=== PATIENT | female | born 1990 | race Caucasian/White ===

== ENCOUNTER 2016-04-11 10:06 | Emergency (ER) | payer OTHER ==
[~2016-04-11] VITALS: Ht 170.2 cm; Wt 113.4 kg
[2016-04-11 10:14] VITALS: BP 150/96
--- NOTE | 2016-04-11 10:25 | NUR ---
Patient being evaluated by DR. VILLARREAL at bedside.
[2016-04-11] MEDS ORDERED: ACETAMINOPHEN EXTRA STRENGTH 500 MG TAB PO ONE (10:30)
--- NOTE | 2016-04-11 10:30 | NUR ---
25/F HERE FOR C/O INTERMITTENT NOSEBLEEDS OVER THE PAST 24 HOURS AND HEADACHE AND BP 150/96. HX OF GESTATIONAL HTN. STATES LAST NOSEBLEED THIS AM LASTING APPROXIMATELY 5 MIN. DENIES N/V/D; SKIN IS PINK/WARM/DRY; AAOX4 WITH EVEN AND STEADY GAIT; LUNGS CLEAR BL; HR EVEN AND REGULAR; PT DENIES ANY FEVER, CP, SOB, OR COUGH AT THIS TIME; PATIENT STATES PAIN OF 9/10 AT THIS TIME; PATIENT POSITIONED FOR COMFORT; HOB ELEVATED; BEDRAILS UP X2; BED DOWN. ER MD MADE AWARE OF PT STATUS.
[2016-04-11] MEDS ORDERED: SILVER NITRATE APPLICATOR 1 EA SWAB TP ONE (10:35)
--- NOTE | 2016-04-11 10:45 | NUR ---
PHONED PHARMACY FOR SILVER NITRATE PER ORDER
--- NOTE | 2016-04-11 11:09 | NUR ---
DR VILLARREAL AT BEDSIDE. MED GIVEN. WILL F/U IN 10MIN.
--- NOTE | 2016-04-11 12:10 | NUR ---
Patient discharged with v/s stable. Written and verbal after care instructions given and explained. Patient alert, oriented and verbalized understanding of instructions. Ambulatory with steady gait. All questions addressed prior to discharge. ID band removed. Patient advised to follow up with PMD. Opportunity to ask questions provided and answered.
[2016-04-11 12:14] VITALS: BP 115/81
== END 2016-04-11 12:14 | disposition home or self-care (01) ==
LOC: MED 10:06
DX: R04.0 Epistaxis (principal); R03.0 Elevated blood-pressure reading, without diagnosis of hypertension; R51 Headache

== ENCOUNTER 2016-09-06 07:31 | Emergency (ER) | payer OTHER ==
[~2016-09-06] VITALS: Ht 172.7 cm; Wt 130.6 kg
[2016-09-06 07:38] VITALS: BP 121/77
--- NOTE | 2016-09-06 07:50 | NUR ---
PT AMB TO BED 6
--- NOTE | 2016-09-06 07:51 | NUR ---
25/F BIB SELF c/o LUQ ABDOMEN sharp pain radiating TO ALL ABDOMEN with nausea x yesterday morning, watery stools x 5 episodes yesterday. DENIES V/D NOTED TODAY; SKIN IS PINK/WARM/DRY; AAOX4 WITH EVEN AND STEADY GAIT; LUNGS CLEAR BL; HR EVEN AND REGULAR; PT DENIES ANY FEVER, CP, SOB, OR COUGH AT THIS TIME; PATIENT STATES PAIN OF 5/10 AT THIS TIME; VSS; PATIENT POSITIONED FOR COMFORT; HOB ELEVATED; BEDRAILS UP X2; BED DOWN. ER MD MADE AWARE OF PT STATUS.
[2016-09-06] MEDS ORDERED: NACL 0.9% 1,000 ML IV SCH (07:58)
[2016-09-06] MEDS ORDERED: ONDANSETRON 4 MG/2 ML VIAL IVP ONE (08:00)
[2016-09-06] MEDS ORDERED: ALUMINUM HYD/MAG/SIMETHICONE 30 ML, DICYCLOMINE HCL LIQUID 20 MG, LIDOCAINE VISCOUS 2% ... PO ONE ×3 (08:00)
[2016-09-06] MEDS ORDERED: KETOROLAC 30 MG/ML VIAL IVP ONE (08:00)
--- NOTE | 2016-09-06 08:15 | NUR ---
ER MD DR CHAVEZ EVALUATING PT AT BEDSIDE.
--- NOTE | 2016-09-06 08:25 | NUR ---
INSERTED IV CATH NO 20 G ;R HAND. PT TOLERATED PROCEDURE WELL. IV PATENT/INTACT. GAVE IV FLUID& MEDS PER ORDERED. ABDOMINAL PAIN 07/24. WILL CONTINUE TO MONITOR.
--- NOTE | 2016-09-06 08:26 | NUR ---
LAB AT BEDSIDE.
[2016-09-06 08:43] LABS: BASOPHILS # (AUTO) 0.2 K/uL (0.00-0.22); BASOPHILS % (AUTO) 3.1 % (0.0-2.0); EOSINOPHILS # (AUTO) 0.1 K/uL (0-0.4); EOSINOPHILS % (AUTO) 1.4 % (0.0-4.0); HEMATOCRIT 34.1 % (36-48); HEMOGLOBIN 10.8 g/dL (12.0-16.0); LYMPHOCYTES # (AUTO) 1.6 K/uL (2.5-16.5); LYMPHOCYTES % (AUTO) 25.9 % (20.5-51.1); MEAN CORPUSCULAR HEMOGLOBIN 25 pg (27-31); MEAN CORPUSCULAR HGB CONC 32 g/dL (33-37); MEAN CORPUSCULAR VOLUME 78 fL (80-94); MONOCYTES # (AUTO) 0.7 K/uL (0.8-1.0); NEUTROPHILS # (AUTO) 3.5 K/uL (1.8-7.7); NEUTROPHILS % (AUTO) 57.6 % (42.2-75.2); PLATELET COUNT (AUTO) 207 K/uL (140-450); RED BLOOD CELL COUNT(AUTO) 4.36 MIL/uL (4.20-5.40); RED CELL DISTRIBUTION WIDTH 14.6 % (11.6-13.7); WHITE BLOOD COUNT (AUTO) 6.1 K/uL (4.8-10.8)
[2016-09-06 08:57] LABS: ANION GAP 11.5 (8-16); CALCIUM 7.7 mg/dL (8.5-10.1); CARBON DIOXIDE 26.2 mmol/L (21-32); CREATININE 0.7 mg/dL (0.6-1.3); POTASSIUM 3.7 mmol/L (3.5-5.1)
--- NOTE | 2016-09-06 09:00 | NUR ---
PT TAKEN TO CT VIA W/C ACCOMPANIED BY CLEAN ROOM TECHNICIAN.
[2016-09-06 09:03] LABS: ALBUMIN 2.7 g/dL (3.4-5.0); TOTAL BILIRUBIN 0.3 mg/dL (0.0-1.0)
--- NOTE | 2016-09-06 09:45 | NUR ---
PT BACK FROM CT
--- NOTE | 2016-09-06 10:46 | NUR ---
ER MD DR CHAVEZ REEVALUATING PT AT BEDSIDE.
[2016-09-06 11:03] VITALS: BP 123/72
[2016-09-06 11:04] LABS: APPEARANCE,URINE HAZY (CLEAR); BILIRUBIN,URINE NEGATIVE (NEGATIVE); BLOOD, URINE 3+ (NEGATIVE); COLOR,URINE YELLOW (YELLOW); LEUKOCYTE ESTERASE ,URINE NEGATIVE (NEGATIVE); NITRITE, URINE NEGATIVE (NEGATIVE); PROTEIN,URINE NEGATIVE (NEGATIVE); UGLUCOSE NEGATIVE (NEGATIVE); UROBILINOGEN,URINE 0.2 EU/dL (0.2 - 1)
[2016-09-06 11:26] LABS: BACTERIA,URINE OCCASSIONAL /HPF (None Seen); MUCUS,URINE 2+ /LPF (None Seen); RBC,URINE 20-50 /HPF (0-5); WBC,URINE 0-4 /HPF (0-5)
== END 2016-09-06 11:03 | disposition home or self-care (01) ==
LOC: MED 07:31
DX: A08.4 Viral intestinal infection, unspecified (principal); I10 Essential (primary) hypertension; E66.01 Morbid (severe) obesity due to excess calories; Z68.41 Body mass index [BMI] 40.0-44.9, adult
CPT/HCPCS: 36415; 74177; 80053; 81001; 81025; 82150; 83690; 84703; 85025; 96361; 96374; 96375; 99285; J1885; J2405; J7030; Q9967; 81002

== ENCOUNTER 2017-07-16 12:06 | Emergency (ER) | payer OTHER ==
[~2017-07-16] VITALS: Ht 172.7 cm; Wt 142.9 kg
[2017-07-16 12:18] VITALS: BP 142/79
--- NOTE | 2017-07-16 12:21 | NUR ---
PT AMBULATED TO DULCE WITH STEADY GAIT
--- NOTE | 2017-07-16 12:30 | NUR ---
PT. CAME INTO ED W/ C/O COUGH THAT HAS BEEN GOING ON FOR 2 DAYS . PT. STATES " I HAVE BEEN HAVING A COUGH FOR TWO DAYS BUT THIS MONRING MY UPPER BACK HURTS WHEN I COUGH AND ALSO WHEN I BREATHE AND HAVE BEEN COUGHING UP YELLOW THICK PHLEGM. " PT. DENIES ANY FEVERS, PT. DENIES SOB, DENIES CHEST PAIN, LS: CLEAR, PT. AAOX4. 7/10 IN HER THROAT AND DESCRIBES IT BURNING AND ALSO 7/10 PAIN IN HER UPPER BACK THAT IS DESCRIBED SHARP AND NONE RADIATING. DENIES N/V/D. E.Juan Diego RANKIN NOTIFIED. WILL CONTINUE TO MONITOR. MOTHER AT BEDSIDE
[2017-07-16] MEDS ORDERED: ALBUTEROL SULFATE/IPRATROPIU 3 ML SOL IH ONE (13:45)
[2017-07-16] MEDS ORDERED: DEXAMETHASONE 10 MG/ML VIAL IM ONE (13:45)
[2017-07-16] MEDS ORDERED: cefTRIAXone 1,000 MG in LIDOCAINE 1% ***ER ONLY *** 2.1 ML IM ONE (13:45)
[2017-07-16] MEDS ORDERED: cefTRIAXone 1,000 MG VIAL ONE (13:56)
[2017-07-16] MEDS ORDERED: LIDOCAINE MPF 1% - **ER/OR** 5 ML ONE (14:00)
[2017-07-16 15:53] VITALS: BP 112/69
--- NOTE | 2017-07-16 15:54 | NUR ---
Patient discharged with v/s stable. Written and verbal after care instructions given and explained. Patient alert, oriented and verbalized understanding of instructions. Ambulatory with steady gait. All questions addressed prior to discharge. ID band removed. Patient advised to follow up with PMD. Rx of PREDNISONE,PROMETHAZINE,AZITHROMYCIN,ALBUTEROL given. Patient educated on indication of medication including possible reaction and side effects. Opportunity to ask questions provided and answered.
== END 2017-07-16 15:54 | disposition home or self-care (01) ==
LOC: MED 12:06
DX: J20.9 Acute bronchitis, unspecified (principal); M25.512 Pain in left shoulder
CPT/HCPCS: 71046; 94640; 96372; 99284; J0696; J1100; J2001; J7620

== ENCOUNTER 2017-11-05 13:33 | Emergency (ER) | payer OTHER ==
[~2017-11-05] VITALS: Ht 170.2 cm; Wt 140.6 kg
[2017-11-05 13:46] VITALS: BP 127/47
--- NOTE | 2017-11-05 13:57 | NUR ---
PT ROOMED IN ED BED 4 BY TEDDY PELAYO
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
--- NOTE | 2017-11-05 15:48 | NUR ---
Patient discharged with v/s stable. Written and verbal after care instructions given and explained. Patient alert, oriented and verbalized understanding of instructions. Ambulatory with steady gait. All questions addressed prior to discharge. ID band removed. Patient advised to follow up with PMD. Rx of PREDNISONE,HYDROCORTISONE AND BENADRYL given. Patient educated on indication of medication including possible reaction and side effects. Opportunity to ask questions provided and answered.
[2017-11-05 15:49] VITALS: BP 125/53
== END 2017-11-05 15:48 | disposition home or self-care (01) ==
LOC: MED 13:33
DX: S93.402A Sprain of unspecified ligament of left ankle, initial encounter (principal); I10 Essential (primary) hypertension; W57.XXXA Bitten or stung by nonvenomous insect and other nonvenomous arthropods, initial encounter; Y93.89 Activity, other specified; Y92.89 Other specified places as the place of occurrence of the external cause; Y99.8 Other external cause status
CPT/HCPCS: 73610; 99284; Q0092

== ENCOUNTER 2018-09-25 17:24 | Emergency (ER) | payer OTHER ==
[~2018-09-25] VITALS: Ht 172.7 cm; Wt 139.4 kg
[2018-09-25 17:50] VITALS: BP 135/78
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
--- NOTE | 2018-09-25 18:05 | NUR ---
Patient ambulated to bed 5 with family. RN evaluating patient at bedside.
--- NOTE | 2018-09-25 19:15 | NUR ---
Pt report given to GITA GUILLEN. Transfer of care at this time.
--- NOTE | 2018-09-25 19:16 | NUR ---
Lex bernard in [facility] - 09/25/18 at 1928 by TEETEE REPORT RECEIVED FROM GITA GUO. TRANSFER OF CARE AT THIS TIME.
--- NOTE | 2018-09-25 19:16 | NUR ---
REPORT RECEIVED FROM GITA GUO. TRANSFER OF CARE AT THIS TIME.
--- NOTE | 2018-09-25 19:26 | NUR ---
DR. PACHECO EVALUATING AT BEDSIDE.
[2018-09-25 19:39] LABS: APPEARANCE,URINE CLEAR (CLEAR); BILIRUBIN,URINE NEGATIVE (NEGATIVE); BLOOD, URINE TRACE-I (NEGATIVE); COLOR,URINE YELLOW (YELLOW); LEUKOCYTE ESTERASE ,URINE TRACE (NEGATIVE); NITRITE, URINE NEGATIVE (NEGATIVE); PH,URINE 8.5 (5.0-9.0); UGLUCOSE NEGATIVE (NEGATIVE)
[2018-09-25 19:59] LABS: RBC,URINE 0-5 /HPF (0-5)
--- NOTE | 2018-09-25 20:15 | NUR ---
LABS DRAWN BY RN AT BEDSIDE.
--- NOTE | 2018-09-25 20:27 | NUR ---
EMT PERFORMING EKG AT BEDSIDE.
[2018-09-25 20:44] LABS: BASOPHILS % (AUTO) 0.2 % (0.0-2.0); HEMATOCRIT 36.5 % (36-48); HEMOGLOBIN 11.3 g/dL (12.0-16.0); LYMPHOCYTES # (AUTO) 1.1 K/uL (2.5-16.5); LYMPHOCYTES % (AUTO) 8.3 % (20.5-51.1); MEAN CORPUSCULAR HEMOGLOBIN 24 pg (27-31); MEAN CORPUSCULAR HGB CONC 31 g/dL (33-37); MEAN CORPUSCULAR VOLUME 77.9 fL (80-94); MONOCYTES # (AUTO) 0.5 K/uL (0.8-1.0); MONOCYTES % (AUTO) 3.8 % (1.7-9.3); NEUTROPHILS # (AUTO) 11.4 K/uL (1.8-7.7); NEUTROPHILS % (AUTO) 87.7 % (42.2-75.2); PLATELET COUNT (AUTO) 231 K/uL (140-450); RED BLOOD CELL COUNT(AUTO) 4.68 MIL/uL (4.20-5.40); RED CELL DISTRIBUTION WIDTH 15.8 % (11.6-13.7)
--- NOTE | 2018-09-25 21:00 | NUR ---
CALLED CT TO CHECK ON STATUS. CT STATES THEY ARE AWAITING LAB RESULTS. WILL CONTINUE TO FOLLOW UP.
[2018-09-25 21:11] LABS: ALBUMIN 3.4 g/dL (3.4-5.0); ANION GAP 13.1 (8-16); CARBON DIOXIDE 26.4 mmol/L (21-32); CREATININE 0.9 mg/dL (0.6-1.3); POTASSIUM 3.5 mmol/L (3.5-5.1); TOTAL BILIRUBIN 0.4 mg/dL (0.0-1.0)
--- NOTE | 2018-09-25 21:50 | NUR ---
PT AWAKE, ALERT, CALM, COOPERATIVE SITTING AT BEDSIDE WAITING FOR CT WITH VSS. PT STATES PAIN IS MANAGABLE AT THIS TIME.
--- NOTE | 2018-09-25 22:03 | NUR ---
PT TAKEN TO CT VIA WC.
--- NOTE | 2018-09-25 22:19 | NUR ---
PATIENT RETURN FROM CT.
[2018-09-26 00:17] VITALS: BP 119/60
--- NOTE | 2018-09-26 00:17 | NUR ---
Patient discharged with v/s stable. Written and verbal after care instructions given and explained. Patient alert, oriented and verbalized understanding of instructions. Ambulatory with steady gait. All questions addressed prior to discharge. ID band removed. IV removed, catheter intact and site benign. Applied folded 4x4 gauze and tape to stop bleeding.Patient advised to follow up with PMD. Rx of Keflex 500mg given. Patient educated on indication of medication including possible reaction and side effects. Opportunity to ask questions provided and answered.
== END 2018-09-26 00:17 | disposition home or self-care (01) ==
LOC: MED 17:24
DX: S20.311A Abrasion of right front wall of thorax, initial encounter (principal); N39.0 Urinary tract infection, site not specified; M54.2 Cervicalgia; I10 Essential (primary) hypertension; V43.53XA Car driver injured in collision with pick-up truck in traffic accident, initial encounter; W22.10XA Striking against or struck by unspecified automobile airbag, initial encounter; Y93.89 Activity, other specified; Y92.488 Other paved roadways as the place of occurrence of the external cause; Y99.8 Other external cause status
CPT/HCPCS: 36415; 71045; 71275; 80053; 81001; 81025; 83690; 85025; 87086; 93005; 99284; Q0092; Q9967

== ENCOUNTER 2019-01-07 22:41 | Emergency (ER) | payer OTHER ==
[~2019-01-07] VITALS: Ht 170.2 cm; Wt 136.1 kg
[2019-01-07 22:55] VITALS: BP 135/87
--- NOTE | 2019-01-07 22:58 | NUR ---
TO LOBBY A/W BED AMBULATORY
--- NOTE | 2019-01-07 23:45 | NUR ---
28 Y/O F PRESENTS TO ER C/O VAGINAL BLEEDING SINCE TODAY. PER PT SHE IS 7 WEEKS . PT RECEIVING CARE. ON FRIDAY PT STATED SHE HAD BROWN DISCHARGE. DENIES DISCHARGE AT THIS TIME. PT HAS VAGINAL BLEEDING THAT STARTED TODAY, BLEEDING IS LIGHT. PT DENIES ANY PAIN. PAIN LEVEL 0/10. THIS IS PT SECOND . ALLERGIES: NKA. MED HX: NONE. SAFETY MEASURES IN PLACE. WAITING FOR ERMD TO EVALUATE PT.
[2019-01-08 00:28] LABS: BASOPHILS % (AUTO) 0.5 % (0.0-2.0); EOSINOPHILS % (AUTO) 0.4 % (0.0-4.0); HEMATOCRIT 34.6 % (36-48); HEMOGLOBIN 10.7 g/dL (12.0-16.0); LYMPHOCYTES # (AUTO) 1.8 K/uL (2.5-16.5); LYMPHOCYTES % (AUTO) 19.7 % (20.5-51.1); MEAN CORPUSCULAR HEMOGLOBIN 24 pg (27-31); MEAN CORPUSCULAR HGB CONC 31 g/dL (33-37); MEAN CORPUSCULAR VOLUME 77.3 fL (80-94); MONOCYTES # (AUTO) 0.6 K/uL (0.8-1.0); MONOCYTES % (AUTO) 6.6 % (1.7-9.3); NEUTROPHILS # (AUTO) 6.7 K/uL (1.8-7.7); NEUTROPHILS % (AUTO) 72.8 % (42.2-75.2); PLATELET COUNT (AUTO) 246 K/uL (140-450); RED BLOOD CELL COUNT(AUTO) 4.48 MIL/uL (4.20-5.40); RED CELL DISTRIBUTION WIDTH 16.8 % (11.6-13.7); WHITE BLOOD COUNT (AUTO) 9.2 K/uL (4.8-10.8)
--- NOTE | 2019-01-08 00:35 | NUR ---
ULTRASOUND AT PT BEDSIDE
[2019-01-08 01:05] LABS: APPEARANCE,URINE SL CLOUDY (CLEAR); BILIRUBIN,URINE NEGATIVE (NEGATIVE); BLOOD, URINE 3+ (NEGATIVE); COLOR,URINE YELLOW (YELLOW); LEUKOCYTE ESTERASE ,URINE NEGATIVE (NEGATIVE); NITRITE, URINE NEGATIVE (NEGATIVE); UGLUCOSE NEGATIVE (NEGATIVE)
[2019-01-08 01:20] LABS: RBC,URINE TOO NUMEROUS TO COUN /HPF (0-5); WBC,URINE 0-5 /HPF (0-5)
--- NOTE | 2019-01-08 01:25 | NUR ---
TRANSFER OF CARE AND REPORT GIVEN TO GITA GUILLEN
--- NOTE | 2019-01-08 02:45 | NUR ---
PT RESTING COMFORTABLY IN BED WITH VSS. SKIN PINK, WARM, DRY. BREATHING EVEN, UNLABORED. NO COMPLAINTS AT THIS TIME.
[2019-01-08 03:04] VITALS: BP 124/74
--- NOTE | 2019-01-08 03:04 | NUR ---
Patient discharged with v/s stable. Written and verbal after care instructions given and explained. Patient verbalized understanding. Ambulatory with steady gait. All questions addressed prior to discharge. Advised to follow up with PMD/OBGYN.
== END 2019-01-08 03:04 | disposition home or self-care (01) ==
LOC: MED 22:41
DX: O20.0 Threatened abortion (principal); O16.1 Unspecified maternal hypertension, first trimester; Z3A.01 Less than 8 weeks gestation of pregnancy
CPT/HCPCS: 36415; 76817; 81001; 81025; 84702; 85025; 86900; 86901; 99284; Q0092

== ENCOUNTER 2019-01-11 18:11 | Emergency (ER) | payer OTHER ==
[~2019-01-11] VITALS: Ht 170.2 cm; Wt 140.7 kg
[2019-01-11 18:20] VITALS: BP 119/78
--- NOTE | 2019-01-11 18:28 | NUR ---
Patient ambulated to bed 7. RN evaluating patient at bedside.
--- NOTE | 2019-01-11 19:24 | NUR ---
Dr. Garsia examining patient.
--- NOTE | 2019-01-11 19:26 | NUR ---
PT C/O LOWER BACK PAIN X 3 DAYS. PT STATES PAIN IS SHARP AND THROBBING AND RATES PAIN 5/10 AT THIS TIME. PT STATES THAT SHE IS AND BELIEVES THAT SHE IS 8 WEEKS. PT STATES THAT SHE HAS VAGINAL BLEEDING X 5 DAYS AND THAT EARLIER THIS EVENING WHEN SHOWERING SOMETHING "FELL OUT". FAMILY MEMBER AT BEDSIDE.
--- NOTE | 2019-01-11 19:30 | NUR ---
report not recieved from day shift nurse for continuity of care. first contact with pt. pt is here because she wants to know if she has had a misscariage due to the fact that she has had increased bleeding in her urine. pt aaox4, gcs 15. nad noted. rr even/unlabored.
[2019-01-11 20:02] LABS: BASOPHILS % (AUTO) 0.3 % (0.0-2.0); HEMOGLOBIN 10.7 g/dL (12.0-16.0); LYMPHOCYTES # (AUTO) 1.2 K/uL (2.5-16.5); LYMPHOCYTES % (AUTO) 9.2 % (20.5-51.1); MEAN CORPUSCULAR HEMOGLOBIN 23 pg (27-31); MEAN CORPUSCULAR HGB CONC 31 g/dL (33-37); MEAN CORPUSCULAR VOLUME 76.7 fL (80-94); MONOCYTES # (AUTO) 0.6 K/uL (0.8-1.0); NEUTROPHILS % (AUTO) 85.5 % (42.2-75.2); PLATELET COUNT (AUTO) 268 K/uL (140-450); RED BLOOD CELL COUNT(AUTO) 4.57 MIL/uL (4.20-5.40); RED CELL DISTRIBUTION WIDTH 16.8 % (11.6-13.7); WHITE BLOOD COUNT (AUTO) 12.8 K/uL (4.8-10.8)
[2019-01-11 20:17] LABS: CARBON DIOXIDE 25.4 mmol/L (21-32); CREATININE 0.7 mg/dL (0.6-1.3); POTASSIUM 3.4 mmol/L (3.5-5.1)
[2019-01-11 20:24] LABS: ALBUMIN 3.4 g/dL (3.4-5.0); TOTAL BILIRUBIN 0.3 mg/dL (0.0-1.0)
[2019-01-11 20:49] VITALS: BP 122/69
--- NOTE | 2019-01-11 20:49 | NUR ---
Patient discharged by dr. constantino with v/s stable. Written and verbal after care instructions given and explained. Patient verbalized understanding. Ambulatory with steady gait. All questions addressed prior to discharge. Advised to follow up with PMD.
== END 2019-01-11 20:49 | disposition home or self-care (01) ==
LOC: MED 18:11
DX: O03.9 Complete or unspecified spontaneous abortion without complication (principal); I10 Essential (primary) hypertension
CPT/HCPCS: 36415; 76801; 80053; 81002; 81025; 84702; 85025; 99284; Q0092

== ENCOUNTER 2020-01-14 21:10 | Observation (INO) | payer OTHER ==
[2020-01-14 22:02] VITALS: BP 109/64
== END 2020-01-14 22:26 | disposition home or self-care (01) ==
LOC: MLD 21:10
PROVIDERS: ADMIT Obstetrics & Gynecology; ATTEND Obstetrics & Gynecology
DX: O9A.213 Injury, poisoning and certain other consequences of external causes complicating pregnancy, third trimester (principal); S80.01XA Contusion of right knee, initial encounter; S80.02XA Contusion of left knee, initial encounter; S80.11XA Contusion of right lower leg, initial encounter; Z3A.32 32 weeks gestation of pregnancy; W18.39XA Other fall on same level, initial encounter; Y93.89 Activity, other specified; Y92.89 Other specified places as the place of occurrence of the external cause
CPT/HCPCS: 81000; G0378

== ENCOUNTER 2023-03-09 21:25 | Emergency (ER) | payer OTHER ==
[~2023-03-09] VITALS: Ht 170.2 cm; Wt 149.7 kg
[2023-03-09 21:31] VITALS: BP 124/81; PULSE 92; RESP 15; TEMP 97.4; O2SAT 99
[2023-03-09] MEDS ORDERED: KETOROLAC 60 MG/2 ML VIAL IM ONE (22:55)
[2023-03-10] MEDS ORDERED: NAPR-54 PO (00:01)
== END 2023-03-10 00:05 | disposition home or self-care (01) ==
LOC: MED 21:25
DX: S92.252A Displaced fracture of navicular [scaphoid] of left foot, initial encounter for closed fracture (principal); I10 Essential (primary) hypertension; Z79.1 Long term (current) use of non-steroidal anti-inflammatories (NSAID); X50.1XXA Overexertion from prolonged static or awkward postures, initial encounter; Y93.89 Activity, other specified; Y92.89 Other specified places as the place of occurrence of the external cause; Y99.8 Other external cause status
CPT/HCPCS: 73610; 73630; 96372; 99284; J1885; Q0092